=== PATIENT | male | born 1930 | race Caucasian/White ===

== ENCOUNTER 2018-08-31 14:58 | Inpatient (IN) ==
[2018-08-31] MEDS ORDERED: Sod Chloride 0.9% Inj 1,000 ML IV.SIG ONE (17:35)
--- NOTE | 2018-08-31 17:44 | ED ---
HPI General Chief complaint: Back Pain/Injury Stated complaint: Back Pain Time Seen by Provider: 08/31/18 17:13 Source: patient, family and RN notes reviewed Mode of arrival: ambulatory History of Present Illness HPI narrative: 88yM presenting with weakness. The patient states that for the past several months he's been having episodes of "lightheadedness where I just feel terrible and it feels like a curtain is coming down over my vision". The patient's family member states that he was recently admitted for UTI/ hyponatremia and was at a rehab facility in [place] until a week ago, when he was discharged and moved to [facility] to be closer to family. His family member also states that he's been having episodes of near-syncope and when he was at the rehab facility was found sitting in a chair "with his eyes rolled back, unresponsive for about 5 minutes" but was at neurologic baseline following this incident. The patient says that he has chronic lower back pain and feels like he is weak in all extremities. Denies fever or chills, diaphoresis, chest pain, palpitations, dyspnea, nausea or vomiting. 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 He also had a brief episode of atrial fibrillation 2-3 years ago but converted back to normal sinus and is no longer on anticoagulation. Related Data Home Medications Medication Instructions Recorded Confirmed levothyroxine [Synthroid] 25 mcg PO DAILY 08/31/18 08/31/18 lisinopril 20 mg PO BID 08/31/18 08/31/18 meclizine 25 mg PO BID 08/31/18 08/31/18 metoprolol tartrate 25 mg PO BID 08/31/18 08/31/18 omeprazole 20 mg PO DAILY 08/31/18 08/31/18 Allergies Allergy/AdvReac Type Severity Reaction Status Date / Time penicillin G Allergy Rash Verified 08/31/18 17:32 Review of Systems ROS: all other systems reviewed are negative [facility] Medical History Medical History Afib (Acute) Colon cancer (Acute) HTN (hypertension) (Acute) Surgical History Surgical History History of colon resection (Acute) Hx of endarterectomy (Acute) Social History Social History Substance History: No History of Abuse Second Hand Smoke Exposure: No Smoking Status: Never smoker How Often Do You Have a Drink Containing Alcohol: 4 or more times a week Recent Travel in [facility] within the Last 8 Weeks: No Recent Out of Country Travel within the Last 8 Weeks: No Immunization History Tetanus Immunization: Unsure Exam Const General: healthy appearing and no acute distress [facility] Head: normocephalic and atraumatic Face and sinus: normal facial exam Eyes General: appearance normal, both eyes and all related structures Pupils: PERRL Chest Chest: normal inspection of the chest Resp Effort & Inspection: normal respiratory effort Auscultation: no rhonchi and no wheezes Cardio Rate: regular rate Rhythm: regular rhythm GI Inspection: non-distended Palpation: soft and nontender Skin General: no rashes or lesions noted Neuro General: alert, awake, oriented x3 and no focal motor deficits Other: Pupils 3 mm and reactive bilaterally, no nystagmus Motor strength 5/5 in all extremities, no drift, sensation intact to all extremities Psych Affect: normal affect Course Initial Documented Vital Signs Temperature 98.6 F 08/31/18 15:14 Pulse Rate 90 08/31/18 15:14 Respiratory Rate 18 08/31/18 15:14 Blood Pressure 136/74 08/31/18 15:14 Pulse Oximetry 94 L 08/31/18 15:14 Last Documented Vital Signs Temperature 98.0 F 09/01/18 16:00 Pulse Rate 86 09/01/18 16:00 Respiratory Rate 18 09/01/18 16:00 Blood Pressure 169/84 H 09/01/18 16:00 Pulse Oximetry 99 09/01/18 16:00 NIH Stroke Scale NIHSS Time Completed NIHSS Time Completed: 17:42 NIH Stroke Scale Level of Consciousness: 0-Alert Orientation Questions: 0-Answers both correct Responds to Commands: 0-Both tasks correct Gaze Eye Movement: 0-Horizontal movement WNL Visual Lewis: 0-No visual field defect Facial Movement: 0-Normal Motor Functions Arm LEFT: 0-No drift Motor Functions Arm RIGHT: 0-No drift Motor Functions Leg LEFT: 0-No drift Motor Functions Leg RIGHT: 0-No drift Limb Ataxia: 0-No ataxia Sensory Loss: 0-No sensory loss Best Language: 0-Normal Articulation: 0-Normal Extinction or Inattention Sensory: 0-Absent Total: 0 Medical Decision Making MDM Narrative Medical decision making narrative: Assessment: 88yM presenting with lightheadedness and near-syncope Plan: EKG and monitor Labs CXR UA CTH, CTA head/ neck if BUN/ creat allow Patient was evaluated/reassessed by myself via the RMA process Patient has a sodium of 127 and potassium is 5.8 EKG shows no changes to suggest hyperkalemia CT of head neck CT angios of head all negative for any acute changes. Discussed with family members and patient about course of treatment. Due to increased weakness near syncopal episodes and constant dizziness patient will be admitted for observation and monitoring of patient's sodium and potassium After 1 L of fluids patient Received repeat potassium which showed potassium 4.7 Patient will be admitted to Dr. Ho Medical Screen Exam Complete: Yes Emergency Medical Condition: Yes Differential Diagnosis Differential Diagnosis: Differential diagnosis includes, but is not limited to: arrhythmia, ACS, electrolyte abnormality, CVA/ TIA, dehydration, ADDY, UTI Lab Data Result diagrams: 09/01/18 10:26 09/01/18 10:26 Lab Results 08/31/18 08/31/18 08/31/18 Range/Units 17:49 17:49 17:49 WBC 7.3 (4.0-11.0) th/mm3 RBC 3.95 L (4.50-5.90) mil/mm3 Hgb 14.2 (13.0-17.0) gm/dL Hct 40.3 (39.0-51.0) % MCV 102.1 H (80.0-100.0) fL MCH 35.8 H (27.0-34.0) pg MCHC 35.1 (32.0-36.0) % RDW 13.3 (11.6-17.2) % Plt Count 351 (150-450) th/mm3 MPV 7.7 (7.0-11.0) fL Prelim Diff (Auto) Slide review pending Neut % (Auto) 67.4 (16.0-70.0) % Lymph % (Auto) 21.1 (9.0-44.0) % [place] % (Auto) 9.7 H (0.0-8.0) % Eos % (Auto) 1.0 (0.0-4.0) % Baso % (Auto) 0.8 (0.0-2.0) % Neut # (Auto) 4.9 (1.8-7.7) th/mm3 Lymph # (Auto) 1.5 (1.0-4.8) th/mm3 [place] # (Auto) 0.7 (0.0-0.9) th/mm3 Eos # (Auto) 0.1 (0.0-0.4) th/mm3 Baso # (Auto) 0.1 (0.0-0.2) th/mm3 WBC Differential . Diff Scan Auto diff confirmed Differential Comment . Platelet Estimate Normal (Normal) Platelet Morphology Clumped H (Normal) PT 10.5 (9.8-11.6) sec INR 1.0 Ratio Sodium 128 L (136-145) meq/L Potassium 5.6 H (3.5-5.1) meq/L Chloride 97 L (98-107) meq/L Carbon Dioxide 26.2 (21.0-32.0) meq/L Anion Gap 5 (5-15) meq/L BUN 14 (7-18) mg/dL Creatinine 1.11 (0.60-1.30) mg/dL Estimated GFR 62 L (>89) mL/min Random Glucose 98 (74-106) mg/dL Calcium 9.1 (8.5-10.1) mg/dL Phosphorus 3.7 (2.5-4.9) mg/dL Magnesium 2.2 (1.5-2.5) mg/dL Total Bilirubin 0.6 (0.2-1.0) mg/dL AST 37 (15-37) U/L ALT 19 (12-78) U/L Alkaline Phosphatase 66 (45-117) U/L Troponin I Less than 0.02 L (0.02-0.05) ng/mL Total Protein 7.9 (6.4-8.2) g/dL Albumin 3.6 (3.4-5.0) g/dL TSH 0.467 (0.358-3.740) uIU/mL Urine Color (Yellw/Straw) Urine Clarity (Clear) Urine pH (5.0-8.5) Ur Specific [place] (1.002-1.035) Urine Protein (Neg-Trace) mg/dL Urine Glucose (UA) (Negative) mg/dL Urine Ketones (Negative) mg/dL Urine Occult Blood (Negative) Urine Nitrate (Negative) Urine Bilirubin (Negative) Urine Urobilinogen (Less than 2) mg/dL Ur Leukocyte Esterase (Negative) Urine RBC (0-3) /hpf Ur Squamous Epith Cells (0-5) /hpf Urine Bacteria (None) /hpf Hyaline Casts (0-3) /lpf Micro UA Comment Ur Microscopic Review Urine Culture Comments 08/31/18 09/01/18 09/01/18 Range/Units 21:10 00:30 00:40 WBC (4.0-11.0) th/mm3 RBC (4.50-5.90) mil/mm3 Hgb (13.0-17.0) gm/dL Hct (39.0-51.0) % MCV (80.0-100.0) fL MCH (27.0-34.0) pg MCHC (32.0-36.0) % RDW (11.6-17.2) % Plt Count (150-450) th/mm3 MPV (7.0-11.0) fL Prelim Diff (Auto) Neut % (Auto) (16.0-70.0) % Lymph % (Auto) (9.0-44.0) % [place] % (Auto) (0.0-8.0) % Eos % (Auto) (0.0-4.0) % Baso % (Auto) (0.0-2.0) % Neut # (Auto) (1.8-7.7) th/mm3 Lymph # (Auto) (1.0-4.8) th/mm3 [place] # (Auto) (0.0-0.9) th/mm3 Eos # (Auto) (0.0-0.4) th/mm3 Baso # (Auto) (0.0-0.2) th/mm3 WBC Differential Diff Scan Differential Comment Platelet Estimate (Normal) Platelet Morphology (Normal) PT (9.8-11.6) sec INR Ratio Sodium (136-145) meq/L Potassium 4.5 D (3.5-5.1) meq/L Chloride (98-107) meq/L Carbon Dioxide (21.0-32.0) meq/L Anion Gap (5-15) meq/L BUN (7-18) mg/dL Creatinine (0.60-1.30) mg/dL Estimated GFR (>89) mL/min Random Glucose (74-106) mg/dL Calcium (8.5-10.1) mg/dL Phosphorus (2.5-4.9) mg/dL Magnesium (1.5-2.5) mg/dL Total Bilirubin (0.2-1.0) mg/dL AST (15-37) U/L ALT (12-78) U/L Alkaline Phosphatase (45-117) U/L Troponin I Less than 0.02 L (0.02-0.05) ng/mL Total Protein (6.4-8.2) g/dL Albumin (3.4-5.0) g/dL TSH (0.358-3.740) uIU/mL Urine Color Straw (Yellw/Straw) Urine Clarity Clear (Clear) Urine pH 6.0 (5.0-8.5) Ur Specific [place] 1.016 (1.002-1.035) Urine Protein Negative (Neg-Trace) mg/dL Urine Glucose (UA) Negative (Negative) mg/dL Urine Ketones Negative (Negative) mg/dL Urine Occult Blood Negative (Negative) Urine Nitrate Negative (Negative) Urine Bilirubin Negative (Negative) Urine Urobilinogen Less than 2 (Less than 2) mg/dL Ur Leukocyte Esterase Negative (Negative) Urine RBC Less than 1 (0-3) /hpf Ur Squamous Epith Cells <1 (0-5) /hpf Urine Bacteria Rare H (None) /hpf Hyaline Casts 1 (0-3) /lpf Micro UA Comment Culture not ind Ur Microscopic Review Not Reportable Urine Culture Comments Culture not ind 09/01/18 09/01/18 Range/Units 10:26 10:26 WBC 5.0 (4.0-11.0) th/mm3 RBC 3.86 L (4.50-5.90) mil/mm3 Hgb 13.6 (13.0-17.0) gm/dL Hct 39.7 (39.0-51.0) % MCV 103.0 H (80.0-100.0) fL MCH 35.1 H (27.0-34.0) pg MCHC 34.1 (32.0-36.0) % RDW 13.6 (11.6-17.2) % Plt Count 280 (150-450) th/mm3 MPV 7.3 (7.0-11.0) fL Prelim Diff (Auto) Neut % (Auto) 74.8 H (16.0-70.0) % Lymph % (Auto) 16.1 (9.0-44.0) % [place] % (Auto) 7.2 (0.0-8.0) % Eos % (Auto) 1.4 (0.0-4.0) % Baso % (Auto) 0.5 (0.0-2.0) % Neut # (Auto) 3.7 (1.8-7.7) th/mm3 Lymph # (Auto) 0.8 L (1.0-4.8) th/mm3 [place] # (Auto) 0.4 (0.0-0.9) th/mm3 Eos # (Auto) 0.1 (0.0-0.4) th/mm3 Baso # (Auto) 0.0 (0.0-0.2) th/mm3 WBC Differential . Diff Scan Differential Comment Auto diff final Platelet Estimate (Normal) Platelet Morphology (Normal) PT (9.8-11.6) sec INR Ratio Sodium 136 (136-145) meq/L Potassium 4.3 (3.5-5.1) meq/L Chloride 103 (98-107) meq/L Carbon Dioxide 26.4 (21.0-32.0) meq/L Anion Gap 7 (5-15) meq/L BUN 10 (7-18) mg/dL Creatinine 0.96 (0.60-1.30) mg/dL Estimated GFR 74 L (>89) mL/min Random Glucose 176 H (74-106) mg/dL Calcium 8.9 (8.5-10.1) mg/dL Phosphorus (2.5-4.9) mg/dL Magnesium (1.5-2.5) mg/dL Total Bilirubin 0.6 (0.2-1.0) mg/dL AST 15 (15-37) U/L ALT 16 (12-78) U/L Alkaline Phosphatase 64 (45-117) U/L Troponin I Less than 0.02 L (0.02-0.05) ng/mL Total Protein 7.0 D (6.4-8.2) g/dL Albumin 3.3 L (3.4-5.0) g/dL TSH (0.358-3.740) uIU/mL Urine Color (Yellw/Straw) Urine Clarity (Clear) Urine pH (5.0-8.5) Ur Specific [place] (1.002-1.035) Urine Protein (Neg-Trace) mg/dL Urine Glucose (UA) (Negative) mg/dL Urine Ketones (Negative) mg/dL Urine Occult Blood (Negative) Urine Nitrate (Negative) Urine Bilirubin (Negative) Urine Urobilinogen (Less than 2) mg/dL Ur Leukocyte Esterase (Negative) Urine RBC (0-3) /hpf Ur Squamous Epith Cells (0-5) /hpf Urine Bacteria (None) /hpf Hyaline Casts (0-3) /lpf Micro UA Comment Ur Microscopic Review Urine Culture Comments Imaging Data Radiologist's impression: Chest X-Ray 08/31/18 17:35 CONCLUSION: Bilateral calcified pleural plaques seen at the diaphragmatic surfaces bilaterally. There are also areas of density projecting over the mid chest regions bilaterally presumably from pleural calcifications. Prior exams are unavailable for comparison. One could further evaluate the chest to ensure the areas of density over the mid chest are related to pleural calcifications with a CT examination. Head CT 08/31/18 17:35 CONCLUSION: Chronic small vessel ischemic and atrophic changes. Neck CTA 08/31/18 17:35 CONCLUSION: 1. Scattered areas of plaque at the carotid bulb regions bilaterally without evidence of significant stenosis. 2. Mild soft plaque at the proximal left common carotid artery without a significant stenosis. Chest CT 09/01/18 00:00 CONCLUSION: 1. Small right and tiny left pleural effusion. 2. Extensive bilateral calcified pleural plaques which can be seen with asbestosis exposure. ECG Data Attestation: I personally reviewed and interpreted this ECG as follows: Interpretation: Rate: 85 BPM Rhythm: Sinus [place]: Normal Intervals: 1st degree AV block, QTc 386 ms Q waves: III, V2 T waves: Upright, no inversions ST segments: No elevations or depressions Impression: Non-specific EKG, 1st degree AV block, no previous EKG available for comparison. Discharge Plan Discharge Disposition Patient Disposition: ED Admit(ED Internal Use Only) Discharge Condition Condition: Stable Discharge Order Discharge Orders: ED Use Only Admit Order (Routine); Ordered 08/31/18 Ordered By: Britta Welsh Discharge Details Diagnosis: Weakness, Falls frequently, Syncopal episodes, Acute hyponatremia, Acute hyperkalemia Physicians Team ED Provider: Stella Sow ED Midlevel Provider: Britta Welsh Primary Care Provider: Primary Care Nay Lainez Attending Provider: Alberto Doty Status ED Status: Left Department Discharge Information Discharge Date/Time: 09/01/18 01:00
[2018-08-31 18:00] LABS: Baso # (Auto) 0.1 th/mm3 (0.0-0.2); Baso % (Auto) 0.8 % (0.0-2.0); Eos # (Auto) 0.1 th/mm3 (0.0-0.4); Hematocrit 40.3 % (39.0-51.0); Hemoglobin 14.2 gm/dL (13.0-17.0); Lymph # (Auto) 1.5 th/mm3 (1.0-4.8); Lymph % (Auto) 21.1 % (9.0-44.0); Mean Corpuscular HGB Conc 35.1 % (32.0-36.0); Mean Corpuscular Hemoglobin 35.8 pg (27.0-34.0); Mean Corpuscular Volume 102.1 fL (80.0-100.0); Mean Platelet Volume 7.7 fL (7.0-11.0); Mono # (Auto) 0.7 th/mm3 (0.0-0.9); Mono % (Auto) 9.7 % (0.0-8.0); Neut # (Auto) 4.9 th/mm3 (1.8-7.7); Neut % (Auto) 67.4 % (16.0-70.0); Platelet Count 351 th/mm3 (150-450); Red Blood Count 3.95 mil/mm3 (4.50-5.90); Red Cell Distribution Width 13.3 % (11.6-17.2); White Blood Count 7.3 th/mm3 (4.0-11.0)
[2018-08-31 18:18] LABS: Alanine Aminotransferase 19 U/L (12-78); Phosphorus 3.7 mg/dL (2.5-4.9)
[2018-08-31 18:27] LABS: Alkaline Phosphatase 66 U/L (45-117); Thyroid Stimulating Hormone 0.467 uIU/mL (0.358-3.740); Total Protein 7.9 g/dL (6.4-8.2)
[2018-08-31 18:36] LABS: Albumin 3.6 g/dL (3.4-5.0); Anion Gap 5 meq/L (5-15); Aspartate Aminotransferase 37 U/L (15-37); Blood Urea Nitrogen 14 mg/dL (7-18); Calcium 9.1 mg/dL (8.5-10.1); Carbon Dioxide 26.2 meq/L (21.0-32.0); Chloride 97 meq/L (98-107); Glomerular Filtration Rate 62 mL/min (>89); Glucose,Random 98 mg/dL (74-106); Magnesium 2.2 mg/dL (1.5-2.5); Potassium 5.6 meq/L (3.5-5.1); Sodium 128 meq/L (136-145)
[2018-08-31 18:37] LABS: Prothrombin Time 10.5 sec (9.8-11.6)
[2018-08-31 18:49] LABS: Platelet Estimate Normal (Normal); Platelet Morphology Clumped (Normal)
--- NOTE | 2018-08-31 19:01 | XR ---
EXAM DATE: 08/31/2018 6:07 PM EST AGE/SEX: 88 years / Male INDICATIONS: Weakness, dizziness. CLINICAL DATA: This is the patient's initial encounter. Patient reports that signs and symptoms have been present for 1 day and indicates a pain score of 0/10. MEDICAL/SURGICAL HISTORY: Hypertension. Endarterectomy None. COMPARISON: No prior exams available for comparison. FINDINGS: The heart size is normal. There is calcification seen over the domes of the diaphragm bilaterally. Th ere also appear to be plaque-like areas of calcification projecting over the mid chest regions bilate rally presumably from pleural calcifications. The heart size is normal. The lungs appear grossly gerald r despite the pleural calcifications. Spurs are seen in the thoracic spine. CONCLUSION: Bilateral calcified pleural plaques seen at the diaphragmatic surfaces bilaterally. There are also ar eas of density projecting over the mid chest regions bilaterally presumably from pleural calcificatio ns. Prior exams are unavailable for comparison. One could further evaluate the chest to ensure the ar eas of density over the mid chest are related to pleural calcifications with a CT examination. Electronically signed by: Ivan Escobar MD Board Certified Radiologist 08/31/2018 7:00 PM EST
--- NOTE | 2018-08-31 19:29 | CT ---
EXAM DATE: 08/31/2018 7:25 PM EST AGE/SEX: 88 years / Male INDICATIONS: Generalized weakness, near syncope. CLINICAL DATA: This is the patient's initial encounter. Patient reports that signs and symptoms have been present for 1 month and indicates a pain score of 0/10. MEDICAL/SURGICAL HISTORY: Carcinoma, colon. Hypertension. AFIB Colon resection. RADIATION DOSE: 56.35 CTDI (mGy) COMPARISON: No prior exams available for comparison. TECHNIQUE: CT of the head without contrast. Using automated exposure control and adjustment of the mA and/or kV according to patient size, radiation dose was kept as low as reasonably achievable to ob tain optimal diagnostic quality images. DICOM format image data is available electronically for revi ew and comparison. FINDINGS: There is no evidence for intracranial hemorrhage, mass effect, mass lesions, or edema. The visualize d bony structures appear intact. Significant degree of brain atrophy is seen. Moderate to severe per iventricular white matter changes are seen nonspecific mostly consistent with chronic small vessel is chemic changes. There are no signs of acute infarction for technique. 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 CONCLUSION: Chronic small vessel ischemic and atrophic changes. Electronically signed by: Isa Pina MD Board Certified Radiologist 08/31/2018 7:28 PM EST
--- NOTE | 2018-08-31 19:42 | CT ---
EXAM DATE: 08/31/2018 7:35 PM EST AGE/SEX: 88 years / Male INDICATIONS: Generalized weakness, near syncope. CLINICAL DATA: This is the patient's initial encounter. Patient reports that signs and symptoms have been present for 1 month and indicates a pain score of 0/10. MEDICAL/SURGICAL HISTORY: Carcinoma, colon. Hypertension. AFIB Colon resection. RADIATION DOSE: 9.71 CTDI (mGy) COMPARISON: [facility] – [place] HEAD W/O CONTRAST, 08/31/2018. . TECHNIQUE: Volumetric scanning was performed using a multi-row detector CT scanner during bolus infu josseline of 100 ml Omnipaque 350 (iohexol) nonionic water-soluble contrast as a cumulative dose for mult iple exams. The data was post processed with a variety of visualization algorithms including full v olume maximum intensity projection, multi-planar sliding thin slab reformation, curved planar reforma tion, and surface rendering techniques. Using automated exposure control and adjustment of the mA an d/or kV according to patient size, radiation dose was kept as low as reasonably achievable to obtain optimal diagnostic quality images. DICOM format image data is available electronically for review an d comparison. FINDINGS: There are areas of slight irregularity involving multiple branches bilaterally most likely due to chr onic atherosclerotic changes mainly involving the PLATE HANGER and MCA branches bilaterally, however other petra ologies such as vasculitis is not excluded. There is no evidence for aneurysm or vascular malformatio n. No definite vessel truncation or filling defect is seen. Conclusion:Chronic atherosclerotic disease without evidence of truncation or definite filling defects . Electronically signed by: Isa Pina MD Board Certified Radiologist 08/31/2018 7:41 PM EST
--- NOTE | 2018-08-31 19:55 | CT ---
EXAM DATE: 08/31/2018 7:43 PM EST AGE/SEX: 88 years / Male INDICATIONS: Generalized weakness, near syncope. CLINICAL DATA: This is the patient's initial encounter. Patient reports that signs and symptoms have been present for 1 month and indicates a pain score of 0/10. MEDICAL/SURGICAL HISTORY: Carcinoma, colon. Hypertension. Colon resection. RADIATION DOSE: 9.71 CTDI (mGy) COMPARISON: No prior exams available for comparison. TECHNIQUE: Volumetric scanning was performed using a multirow detector CT scanner during bolus infus ion of 100 ml Omnipaque 350 (iohexol) nonionic water-soluble contrast as a cumulative dose for multi ple exams. The data was postprocessed with a variety of visualization algorithms including full-vol ume maximum intensity projection, multiplanar sliding thin-slab reformation, curved-planar reformatio n, and surface-rendering techniques. Using automated exposure control and adjustment of the mA and/o r kV according to patient size, radiation dose was kept as low as reasonably achievable to obtain opt imal diagnostic quality images. DICOM format image data is available electronically for review and c omparison. FINDINGS: Aortic Arch: The left common carotid artery arises from the base of the right brachiocephalic artery . This a normal variant. No ostial narrowing is seen at the great vessels. There is scattered atheros clerotic calcification seen in these regions and the aortic arch. There is mild soft plaque at the pr oximal left common carotid artery without significant stenosis. Right Carotid: The common carotid artery is intact. Mild plaquing calcifications seen in the carotid bulb region without significant stenosis. Clips are seen around the right carotid bulb region. The external carotid artery is intact. Left Carotid: The common carotid artery is intact. There is calcified plaque seen at the carotid bul b region but an area of significant stenosis is not appreciated. The external carotid artery is intac t. Vertebrals: The vertebral arteries have a symmetric diameter. No stenotic lesions are seen. Percent stenosis is calculated using the diameter of the stenotic region over the diameter of the nor mal distal internal carotid artery. CONCLUSION: 1. Scattered areas of plaque at the carotid bulb regions bilaterally without evidence of significant stenosis. 2. Mild soft plaque at the proximal left common carotid artery without a significant stenosis. Electronically signed by: Ivan Escobar MD Board Certified Radiologist 08/31/2018 7:53 PM EST
[2018-08-31] MEDS ORDERED: Acetaminophen 325 MG Tablet PO PRN (22:54)
[2018-08-31] MEDS ORDERED: Bisacodyl 10 MG Supp RECTAL PRN (22:54)
--- NOTE | 2018-08-31 22:58 | P.HPIM ---
History of Present Illness Primary Care Physician: No Primary Care Physician History of Present Illness: This is an 88-year-old male with a PMH of HTN, Colon CA s/p Resection, h/o Right CEA and h/o A-fib who was brought to the ER after episode of syncope vs seizure. Pt very poor historian, but reports significant lightheadedness for several weeks, states he was told he had a syncopal event, but has no recollection. Per Daughter, pt was seen at Rehab Facility slumped in chair w/ "eyes rolled back", +LOC for approx 5 min. No recurrent episodes while in ER. Diagnosis (1) Syncope: (2) Hyponatremia: (3) Weakness: Review of Systems PAST FAMILY HISTORY: Reviewed. No h/o DM or CAD Review of Systems: all other systems reviewed are negative [facility] Medical History Medical History Afib (Acute) Colon cancer (Acute) HTN (hypertension) (Acute) Surgical History Surgical History History of colon resection (Acute) Hx of endarterectomy (Acute) Social History Social History Second Hand Smoke Exposure: No Smoking Status: Never smoker How Often Do You Have a Drink Containing Alcohol: 2 to 4 times a month Recent Travel in [facility] within the Last 8 Weeks: No Recent Out of Country Travel within the Last 8 Weeks: No Immunization History Tetanus Immunization: Unsure Medications and Allergies Allergies Allergy/AdvReac Type Severity Reaction Status Date / Time penicillin G Allergy Rash Verified 08/31/18 17:32 Home Medications Medication Instructions Recorded Confirmed Type levothyroxine [Synthroid] 25 mcg PO DAILY 08/31/18 08/31/18 History lisinopril 20 mg PO BID 08/31/18 08/31/18 History meclizine 25 mg PO BID 08/31/18 08/31/18 History metoprolol tartrate 25 mg PO BID 08/31/18 08/31/18 History omeprazole 20 mg PO DAILY 08/31/18 08/31/18 History Active Medications: Active Medications Sodium Chloride (Ns Flush) 2 ml IV.FLUSH PRN PRN PRN Reason: FLUSH AFTER USING IV ACCESS Physical Exam Vital signs: Vital Signs 08/31/18 15:14 08/31/18 18:41 Temperature 98.6 F Pulse Rate 90 84 Respiratory Rate 18 20 Blood Pressure 136/74 168/85 H Pulse Oximetry 94 L 98 Intake & Output 08/31/18 08/31/18 09/01/18 06:59 18:59 06:59 Intake Total 1000 / 1000 Balance 1000 / 1000 Weight 74.843 kg Intake: IV 1000 / 1000 NS Inj 1,000 ML @ Wide Open IV. 1000 / 1000 SIG BOLUS ONE Rx#:[id number] Narrative: PE: GENERAL: Very pleasant elderly white male in no acute distress. SKIN: Focused skin assessment warm and dry. HEENT: PERRLA, EOMI. No scleral icterus or conjunctival pallor. No lid lag or facial droop. CARDIOVASCULAR: Regular rate and rhythm. No obvious murmurs to auscultation. No chest tenderness to palpation. RESPIRATORY: No obvious rhonchi or wheezing. Clear to auscultation. Breath sounds equal bilaterally. GASTROINTESTINAL: Abdomen soft, non-tender, nondistended. BS normal. MUSCULOSKELETAL: Extremities without clubbing, cyanosis, or edema. No obvious deformities. NEUROLOGICAL: Awake, alert and oriented x4. No focal neurologic deficits. Moving both upper and lower extremities spontaneously. PSYCHIATRIC: Appropriate mood and affect. Insight and judgment normal. Results Labs CBC & Chem 7: 08/31/18 17:49 08/31/18 21:10 Imaging Impressions Chest X-Ray 08/31/18 17:35 CONCLUSION: Bilateral calcified pleural plaques seen at the diaphragmatic surfaces bilaterally. There are also areas of density projecting over the mid chest regions bilaterally presumably from pleural calcifications. Prior exams are unavailable for comparison. One could further evaluate the chest to ensure the areas of density over the mid chest are related to pleural calcifications with a CT examination. Head CT 08/31/18 17:35 CONCLUSION: Chronic small vessel ischemic and atrophic changes. Neck CTA 08/31/18 17:35 CONCLUSION: 1. Scattered areas of plaque at the carotid bulb regions bilaterally without evidence of significant stenosis. 2. Mild soft plaque at the proximal left common carotid artery without a significant stenosis. Caprini VTE Risk Assessment Caprini VTE Risk Assessment: No/Low Risk (score <= 1) Caprini Risk Assessment Model: Point Value = 1 Point Value = 2 Point Value = 3 Point Value = 5 Age 41-60 Minor surgery BMI > 25 kg/m2 Swollen legs Varicose veins or History of unexplained or recurrent spontaneous Oral contraceptives or hormone replacement Sepsis (< 1 month) Serious lung disease, including pneumonia (< 1 month) Abnormal pulmonary function Acute myocardial infarction Congestive heart failure (< 1 month) History of inflammatory bowel disease Medical patient at bed rest Age 61-74 Arthroscopic surgery Major open surgery (> 45 min) Laparoscopic surgery (> 45 min) Malignancy Confined to bed (> 72 hours) Immobilizing plaster cast Central venous access Age >= 75 History of VTE Family history of VTE Factor V Leiden Prothrombin [id number] Lupus anticoagulant Anticardiolipin antibodies Elevated serum homocysteine Heparin-induced thrombocytopenia Other congenital or acquired thrombophilia Stroke (< 1 month) Elective arthroplasty Hip, pelvis, or leg fracture Acute spinal cord injury (< 1 month) Prophylaxis Regimen: Total Risk Factor Score Risk Level Prophylaxis Regimen 0-1 Low Early ambulation 2 Moderate Order ONE of the following: *Sequential Compression Device (SCD) *Heparin 5000 units SQ BID 3-4 Higher Order ONE of the following medications: *Heparin 5000 units SQ TID *Enoxaparin/Lovenox 40 mg SQ daily (WT < 150 kg, CrCl > 30 mL/min) *Enoxaparin/Lovenox 30 mg SQ daily (WT < 150 kg, CrCl > 10-29 mL/min) *Enoxaparin/Lovenox 30 mg SQ BID (WT < 150 kg, CrCl > 30 mL/min) AND/OR *Sequential Compression Device (SCD) 5 or more Highest Order ONE of the following medications: *Heparin 5000 units SQ TID (Preferred with Epidurals) *Enoxaparin/Lovenox 40 mg SQ daily (WT < 150 kg, CrCl > 30 mL/min) *Enoxaparin/Lovenox 30 mg SQ daily (WT < 150 kg, CrCl > 10-29 mL/min) *Enoxaparin/Lovenox 30 mg SQ BID (WT < 150 kg, CrCl > 30 mL/min) AND *Sequential Compression Device (SCD) Assessment and Plan (1) Syncope: Code(s): R55 - Syncope and collapse Status: Acute (2) Hyponatremia: Code(s): E87.1 - Hypo-osmolality and hyponatremia Status: Acute (3) Weakness: Code(s): R53.1 - Weakness Status: Acute Plan A/P: 1. Syncope: vs Seizure, reports ongoing lightheadedness for few weeks w/ previous syncopal events, today w/ syncope vs seizure, pt w/ no recollection of events. CT Head w/ chronic small vessel ischemic changes. CTA Head chronic atherosclerotic disease a Head scattered areas of plaque carotid bulbs bilaterally without significant stenosis, mild soft plaque left common carotid artery without significant stenosis. Telemetry, check Echo to eval for valvular abnormality/cardiomyopathy, check serial cardiac enzymes for possible ischemia, check EEG, Seizure Precautions. 2. Hyponatremia: Na 128, Daughter notes chronic, IVF for hydration, monitor I/ O, check U/a to eval for underlying UTI 3. Weakness: likely secondary to above, PT for eval/tx, Case Management. 4. DVT Prophylaxis: SCD/Teds 5. Social work for d/c planning as needed 6. Case discussed w/ ER physician at length, labs/records/imaging reviewed by me.
[2018-09-01 01:09] LABS: Bacteria,Urine Rare /hpf; Bilirubin,Urine Negative (Negative); Clarity,Urine Clear (Clear); Color,Urine Straw (Yellw/Straw); Glucose,Urine (UA) Negative (Negative); Hyaline Casts,Urine 1 /lpf (0-3); Leukocyte Esterase,Urine Negative (Negative); Nitrite,Urine Negative (Negative); Specific Gravity,Urine 1.016 (1.002-1.035); Squamous Epithelial Cell,Urine <1 /hpf (0-5)
[2018-09-01] MEDS: Sod Chloride 0.9% Inj 1,000 ML IV.CONT SCH ×3 (02:00→21:23)
[2018-09-01] MEDS ORDERED: Morphine Inj 4 MG/ML Vial IV.PUSH PRN (10:15)
[2018-09-01] MEDS ORDERED: Naloxone Inj 0.4 MG/ML Vial IV.PUSH PRN (10:15)
[2018-09-01] MEDS: Pantoprazole Sodium 20 MG DR Tablet PO SCH (10:55)
[2018-09-01] MEDS: Senna/Docusate Sodium 8.6/50 MG Tablet PO SCH ×2 (11:05→21:23)
[2018-09-01 11:09] LABS: Baso % (Auto) 0.5 % (0.0-2.0); Eos # (Auto) 0.1 th/mm3 (0.0-0.4); Eos % (Auto) 1.4 % (0.0-4.0); Hematocrit 39.7 % (39.0-51.0); Hemoglobin 13.6 gm/dL (13.0-17.0); Lymph # (Auto) 0.8 th/mm3 (1.0-4.8); Lymph % (Auto) 16.1 % (9.0-44.0); Mean Corpuscular HGB Conc 34.1 % (32.0-36.0); Mean Corpuscular Hemoglobin 35.1 pg (27.0-34.0); Mean Platelet Volume 7.3 fL (7.0-11.0); Mono # (Auto) 0.4 th/mm3 (0.0-0.9); Mono % (Auto) 7.2 % (0.0-8.0); Neut # (Auto) 3.7 th/mm3 (1.8-7.7); Neut % (Auto) 74.8 % (16.0-70.0); Platelet Count 280 th/mm3 (150-450); Red Blood Count 3.86 mil/mm3 (4.50-5.90); Red Cell Distribution Width 13.6 % (11.6-17.2)
[2018-09-01 11:43] LABS: Albumin 3.3 g/dL (3.4-5.0); Anion Gap 7 meq/L (5-15); Aspartate Aminotransferase 15 U/L (15-37); Blood Urea Nitrogen 10 mg/dL (7-18); Calcium 8.9 mg/dL (8.5-10.1); Carbon Dioxide 26.4 meq/L (21.0-32.0); Chloride 103 meq/L (98-107); Glomerular Filtration Rate 74 mL/min (>89); Glucose,Random 176 mg/dL (74-106); Potassium 4.3 meq/L (3.5-5.1); Sodium 136 meq/L (136-145)
[2018-09-01 11:49] LABS: Alanine Aminotransferase 16 U/L (12-78); Alkaline Phosphatase 64 U/L (45-117)
--- NOTE | 2018-09-01 14:12 | ECG ---
Date Performed: 08/31/2018 Time Performed: 20:12:06 PTAGE: 88 years EKG: Baseline artifact present Sinus rhythm WITH FIRST DEGREE AV BLOCK ABNORMAL ECG No significant change from prior electrocardiogram. PREVIOUS TRACING : 08/31/2018 17.55 DOCTOR: Kike Franklin Interpretating Date/Time 09/01/2018 14:10:23
--- NOTE | 2018-09-01 14:15 | ECG ---
Date Performed: 08/31/2018 Time Performed: 17:55:01 PTAGE: 88 years EKG: Baseline artifact present PROBABLE Sinus rhythm WITH FIRST DEGREE AV BLOCK ABNORMAL ECG NO PREVIOUS TRACING DOCTOR: Kike Franklin Interpretating Date/Time 09/01/2018 14:14:23
--- NOTE | 2018-09-01 14:28 | P.PNIM ---
Subjective Interval history: No overnight events, still with dizziness and lightheadedness. Patient cannot remember passing out but was told that he passed out. No nausea or vomiting. Denies any palpitations, chest pain or headache. No focal weakness. Physical Exam Vital signs: Vital Signs 08/31/18 15:14 08/31/18 18:41 09/01/18 00:25 Temperature 98.6 F Pulse Rate 90 84 83 Respiratory Rate 18 20 18 Blood Pressure 136/74 168/85 H 155/79 H Pulse Oximetry 94 L 98 98 09/01/18 01:00 09/01/18 04:00 09/01/18 08:00 Temperature 98.0 F 97.8 F Pulse Rate 94 H 71 88 Respiratory Rate 20 20 Blood Pressure 157/98 H 149/78 H Pulse Oximetry 96 96 09/01/18 12:00 Temperature 97.8 F Pulse Rate 88 Respiratory Rate 20 Blood Pressure 141/75 H Pulse Oximetry 98 Intake & Output 08/31/18 09/01/18 09/01/18 18:59 06:59 18:59 Intake Total 1000 / 1000 1000 / 1000 Output Total 400 / 400 Balance 600 / 600 1000 / 1000 Weight 74.843 kg 2.58 kg Intake: IV 1000 / 1000 1000 / 1000 NS Inj 1,000 ML @ 100 mls/hr IV 1000 / 1000 .CONT .Q10H SULEMA Rx#:[id number] NS Inj 1,000 ML @ Wide Open IV. 1000 / 1000 SIG BOLUS ONE Rx#:[id number] Output: Urine 400 / 400 Other: Date of Last Bowel Movement 08/30/18 08/30/18 Weight On Admission 77 kg Narrative: Not in distress, well-nourished, looks stated age PERRL, pink conjunctiva without injection, anicteric Normal rate and regular rhythm, no murmurs gallops or rubs appreciated. Clear to auscultation and symmetric bilaterally, normal respiratory effort. Normal bowel sounds, soft, non-tender, nondistended, no guarding. Extremities without clubbing, cyanosis, or edema. No rash of generalized distribution. AAO x3, no cranial nerve deficits, moves all 4 extremities, no focal neurologic deficits Results Labs CBC & Chem 7: 09/01/18 10:26 09/01/18 10:26 Imaging Imaging: Impressions Chest X-Ray 02/15/19 17:35 CONCLUSION: Bilateral calcified pleural plaques seen at the diaphragmatic surfaces bilaterally. There are also areas of density projecting over the mid chest regions bilaterally presumably from pleural calcifications. Prior exams are unavailable for comparison. One could further evaluate the chest to ensure the areas of density over the mid chest are related to pleural calcifications with a CT examination. Head CT 08/31/18 17:35 CONCLUSION: Chronic small vessel ischemic and atrophic changes. Neck CTA 08/31/18 17:35 CONCLUSION: 1. Scattered areas of plaque at the carotid bulb regions bilaterally without evidence of significant stenosis. 2. Mild soft plaque at the proximal left common carotid artery without a significant stenosis. Assessment and Plan (1) Syncope: Code(s): R55 - Syncope and collapse Status: Acute (2) Hyponatremia: Code(s): E87.1 - Hypo-osmolality and hyponatremia Status: Acute (3) Weakness: Code(s): R53.1 - Weakness Status: Acute Plan This is an 88-year-old male with history of hypertension, colon cancer, atrial fibrillation presented to the hospital for possible seizure versus syncope. Seizure versus syncope - reports ongoing lightheadedness for few weeks w/ previous syncopal events, pt w/ no recollection of events. CT Head w/ chronic small vessel ischemic changes. CTA Head chronic atherosclerotic disease a Head scattered areas of plaque carotid bulbs bilaterally without significant stenosis , mild soft plaque left common carotid artery without significant stenosis. Keep on telemetry. Follow-up echocardiogram, troponin negative x3. Check EEG. Seizure precautions, check orthostatics. Urinalysis negative Bilateral calcified diaphragmatic pleural plaques-chest x-ray showed bilateral calcified diaphragmatic pleural plaques. There are also areas of density projecting over the mid chest regions bilaterally presumably from pleural calcifications. V Hyponatremia-sodium 128, continue normal saline, recheck BMP tomorrow. Generalized weakness-could be from dehydration, continue IVF. Continue physical therapy DVT prophylaxis: SCDs Patient will need rehab per physical therapy evaluation. Progress Note: Quality VTE Deep Vein Thrombosis/Pulmonary Embolism Present on Admission: No
--- NOTE | 2018-09-01 16:08 | CT ---
EXAM DATE: 09/01/2018 3:54 PM EST AGE/SEX: 88 years / Male INDICATIONS: Abnormal chest x-ray. CLINICAL DATA: This is the patient's initial encounter. Patient reports that signs and symptoms have been present for 1 day and indicates a pain score of 0/10. MEDICAL/SURGICAL HISTORY: Carcinoma, colon. Hypertension. Colon resection. RADIATION DOSE: 10.26 CTDI (mGy) COMPARISON: [facility] [place] [facility] [place] 1[place] SINGLE AP, 08/31/2018. . TECHNIQUE: Multiple contiguous axial images were obtained through the chest without contrast. Image s were obtained in suspended respiration using multiple row detector helical technique. Using automa simone exposure control and adjustment of the mA and/or kV according to patient size, radiation dose was kept as low as reasonably achievable to obtain optimal diagnostic quality images. DICOM format imag e data is available electronically for review and comparison. FINDINGS: Lungs: The lungs are symmetrically aerated. No infiltrates or nodular densities are seen. Mediastinum: There is good visualization of the great vessels of the middle mediastinum. No evidenc e of mediastinal or hilar adenopathy/mass. Pleurae: Small right and tiny left pleural effusion. Bilateral calcified pleural plaques Axillae: Unremarkable. Bony Structures: Unremarkable. Miscellaneous: The examination was extended to include the upper abdomen, and both adrenal glands ar e normal in size and configuration. CONCLUSION: 1. Small right and tiny left pleural effusion. 2. Extensive bilateral calcified pleural plaques which can be seen with asbestosis exposure. Electronically signed by: Aron Rosas MD Board Certified Radiologist 09/01/2018 4:07 PM EST
[2018-09-02] MEDS: Sod Chloride 0.9% Inj 1,000 ML IV.CONT SCH (05:08)
--- NOTE | 2018-09-02 09:05 | ECHRPT ---
Indication: SYNCOPE CONCLUSIONS Normal left ventricular size. Wall thickness is normal. The left ventricular systolic function is normal with an estimated ejection fraction in the range of 60-65%. No definite regional wall motion abnormalities are present. Moderate mitral valve regurgitation. Structurally normal mitral valve. Mild aortic valve sclerosis is present. Mild aortic valve regurgitation. There is mild tricuspid regurgitation. The estimated pulmonary arterial pressure is 45 mmHg. BP: / HR: Rhythm: Sinus MEASUREMENTS (Male / Female) Normal Values Technical Quality:Fair 2D ECHO LVOT Diameter 1.8 cm Aortic Root Diameter 3.5 cm LA Volume Index 50.3 cm/m 16 - 28 cm/m DOPPLER AV Peak Velocity 92.2 cm/s AV Peak Gradient 3.4 mmHg AV Mean Gradient 2.0 mmHg AV Velocity Time Integral 19.3 cm LVOT Peak Velocity 72.2 cm/s LVOT Peak Gradient 2.1 mmHg LVOT Velocity Time Integral 14.0 cm AV Area Cont Eq vti 1.8 cm AV Area Cont Eq pk 2.0 cm MR Peak Velocity 620.0 cm/s MR Peak Gradient 153.8 mmHg MR ERO PISA 0.2 cm MR Regurgitant Volume PISA 50.5 cm LV E' Lateral Velocity 11.2 cm/s LV E' Septal Velocity 8.6 cm/s TR Peak Velocity 404.0 cm/s TR Peak Gradient 65.0 mmHg Right Atrial Pressure 10.0 mmHg Pulmonary Artery Systolic Pressu 75.3 mmHg Right Ventricular Systolic Press 75.3 mmHg PV Peak Velocity 45.1 cm/s PV Peak Gradient 0.8 mmHg FINDINGS LEFT VENTRICLE Normal left ventricular size. Wall thickness is normal. The left ventricular systolic function is normal with an estimated ejection fraction in the range of 60-65%. No definite regional wall motion abnormalities are present. RIGHT VENTRICLE Normal right ventricular size and systolic function. LEFT ATRIUM The left atrial size is upper normal. RIGHT ATRIUM The right atrial size is normal. ATRIAL SEPTUM No atrial level shunt is demonstrated by color flow Doppler interrogation. AORTA The aortic root and proximal ascending aorta are normal in size on limited imaging. MITRAL VALVE Moderate mitral valve regurgitation. Structurally normal mitral valve. AORTIC VALVE Mild aortic valve sclerosis is present. Mild aortic valve regurgitation. TRICUSPID VALVE There is mild tricuspid regurgitation. The estimated pulmonary arterial pressure is 45 mmHg. PULMONARY VALVE Trivial pulmonary valve regurgitation. VESSELS The inferior vena cava is normal in size. PERICARDIUM No pericardial effusion. Bartolo Potts MD (Electronically Signed) Final Date:02 September 2018 09:04
--- NOTE | 2018-09-02 09:09 | P.PNIM ---
Subjective Interval history: Follow-up for syncope Blood pressure in the 140s-170s. Patient still has lightheadedness. No nausea or vomiting. Blood pressure stable, orthostatics negative. No events on telemetry. Physical Exam Vital signs: Vital Signs 09/01/18 12:00 09/01/18 16:00 09/01/18 20:00 Temperature 97.8 F 98.0 F 97.7 F Pulse Rate 88 86 85 Respiratory Rate 20 18 17 Blood Pressure 141/75 H 169/84 H 149/81 H Pulse Oximetry 98 99 98 Intake & Output 09/01/18 09/02/18 09/02/18 18:59 06:59 18:59 Intake Total 1000 / 1000 2280 / 2280 Output Total 1700 / 1700 300 / 300 Balance -700 / -700 1979 Intake: IV 1000 / 1000 1999 / 1999 NS Inj 1,000 ML @ 100 mls/hr IV 1000 / 1000 1999 .CONT .Q10H SULEMA Rx#:[id number] Oral 280 / 280 Output: Urine 1700 / 1700 300 / 300 Other: Date of Last Bowel Movement 08/30/18 Narrative: Not in distress, well-nourished, looks stated age PERRL, pink conjunctiva without injection, anicteric Normal rate and regular rhythm, no murmurs gallops or rubs appreciated. Clear to auscultation and symmetric bilaterally, normal respiratory effort. Normal bowel sounds, soft, non-tender, nondistended, no guarding. Extremities without clubbing, cyanosis, or edema. No rash of generalized distribution. AAO x3, no cranial nerve deficits, moves all 4 extremities, no focal neurologic deficits Results Labs CBC & Chem 7: 09/01/18 10:26 09/02/18 10:21 Imaging Imaging: Impressions Chest CT 09/01/18 00:00 CONCLUSION: 1. Small right and tiny left pleural effusion. 2. Extensive bilateral calcified pleural plaques which can be seen with asbestosis exposure. Assessment and Plan (1) Syncope: Code(s): R55 - Syncope and collapse Status: Acute (2) Hyponatremia: Code(s): E87.1 - Hypo-osmolality and hyponatremia Status: Acute (3) Weakness: Code(s): R53.1 - Weakness Status: Acute Plan This is an 88-year-old male with history of hypertension, colon cancer, atrial fibrillation presented to the hospital for possible seizure versus syncope. Seizure versus syncope - reports ongoing lightheadedness for few weeks w/ previous syncopal events, pt w/ no recollection of events. CT Head w/ chronic small vessel ischemic changes. CTA Head chronic atherosclerotic disease , neck CTA showed scattered areas of plaque carotid bulbs bilaterally without significant stenosis, mild soft plaque left common carotid artery without significant stenosis. Keep on telemetry. Echocardiogram showed an ejection fraction of 60-65%, no wall motion abnormalities, no aortic stenosis. Mild aortic valve regurgitation. Troponin negative x3. EEG showed mild encephalopathy. Orthostatics negative. Telemetry unremarkable. Urinalysis negative. Discussed with daughter, most likely cause would be hyponatremia at this point. Bilateral calcified diaphragmatic pleural plaques-chest x-ray showed bilateral calcified diaphragmatic pleural plaques. There are also areas of density projecting over the mid chest regions bilaterally presumably from pleural calcifications. Chest CT only showed small right and tiny left pleural effusion , extensive bilateral calcified pleural plaques which can be seen with asbestosis exposure, this can be followed up as outpatient. Hyponatremia-sodium now normal, stop IVF, start sodium chloride tablets, recheck BMP tomorrow. Generalized weakness-could be from dehydration, resolved. Hypertension-uncontrolled, on lisinopril, metoprolol DVT prophylaxis: SCDs Patient will need rehab per physical therapy evaluation. Discussed with daughter and patient, patient has a DNR/DNI order Recommendation is rehab, will reevaluate now that the sodium is normal. Discharge with home health care preferable versus rehab. Needs outpatient follow-up with primary care physician. I spent 35 minutes [id number] with the patient or on the quintana discussing the patient's disposition, prognosis and plan of care with his daughter. Over half of time spent was devoted to counseling the patient regarding placement and coordinating care with caregivers and nursing. Progress Note: Quality VTE Deep Vein Thrombosis/Pulmonary Embolism Present on Admission: No
[2018-09-02] MEDS ORDERED: Lisinopril 20 MG Tablet PO SCH (09:15)
[2018-09-02] MEDS: Senna/Docusate Sodium 8.6/50 MG Tablet PO SCH ×2 (09:22→21:12)
[2018-09-02] MEDS: oxyCODONE/Acetaminophen 10/325 Tablet PO PRN ×2 (09:23→17:00)
[2018-09-02] MEDS: Pantoprazole Sodium 20 MG DR Tablet PO SCH (09:23)
[2018-09-02] MEDS: Lisinopril 20 MG Tablet PO SCH ×2 (09:23→21:07)
--- NOTE | 2018-09-02 09:35 | MG ---
cc: Ramy Mcgrath MD EEG RECORD NUMBER: [id number] Posterior rhythm demonstrates 6 Hz activity 10-40 microvolts with overriding occasional 2-3 Hz delta activity. Moderate frontal myogenic artifact. Reduced driving with photic stimulation. Single lead EKG showing sinus rhythm. INTERPRETATION: Mild encephalopathy. Clinical correlation. MD SILAS Garcia/susie , 08:07 AM , 08:11 AM
[2018-09-02 12:20] LABS: Calcium 8.8 mg/dL (8.5-10.1); Carbon Dioxide 27.1 meq/L (21.0-32.0); Potassium 4.3 meq/L (3.5-5.1)
[2018-09-02] MEDS: Sodium Chloride 1 GM Tablet PO SCH ×2 (14:38→21:07)
[2018-09-02] MEDS: Metoprolol Tartrate 25 MG Tablet PO SCH (21:06)
[2018-09-03] MEDS: Sodium Chloride 1 GM Tablet PO SCH (09:29)
[2018-09-03] MEDS: Lisinopril 20 MG Tablet PO SCH (09:29)
[2018-09-03] MEDS: Pantoprazole Sodium 20 MG DR Tablet PO SCH (09:29)
[2018-09-03] MEDS: Senna/Docusate Sodium 8.6/50 MG Tablet PO SCH (09:29)
[2018-09-03] MEDS: Metoprolol Tartrate 25 MG Tablet PO SCH (09:30)
--- NOTE | 2018-09-03 10:55 | P.PNIM ---
Subjective Interval history: No new complaints today, still a bit lightheaded. Sodium is 135. She would like to go home instead of going to rehab. Physical Exam Vital signs: Vital Signs 09/02/18 12:15 09/02/18 16:00 09/02/18 17:05 Temperature 96.3 F L 96.9 F L Pulse Rate 87 86 62 Respiratory Rate 20 20 Blood Pressure 133/92 H 135/71 Pulse Oximetry 98 09/03/18 08:10 Temperature 97.4 F L Pulse Rate 83 Respiratory Rate 17 Blood Pressure 161/86 H Pulse Oximetry 97 Intake & Output 09/02/18 09/03/18 09/03/18 18:59 06:59 18:59 Intake Total 1000 / 1000 Output Total 150 / 150 125 / 125 Balance 850 / 850 -125 / -125 Intake: IV 1000 / 1000 NS Inj 1,000 ML @ 100 mls/hr IV 1000 / 1000 .CONT .Q10H SULEMA Rx#:[id number] Output: Urine 150 / 150 125 / 125 Other: Date of Last Bowel Movement 08/30/18 08/31/18 Narrative: Not in distress, well-nourished, looks stated age PERRL, pink conjunctiva without injection, anicteric Normal rate and regular rhythm, no murmurs gallops or rubs appreciated. Clear to auscultation and symmetric bilaterally, normal respiratory effort. Normal bowel sounds, soft, non-tender, nondistended, no guarding. Extremities without clubbing, cyanosis, or edema. No rash of generalized distribution. AAO x3, no cranial nerve deficits, moves all 4 extremities, no focal neurologic deficits Results Labs CBC & Chem 7: 09/01/18 10:26 09/03/18 10:50 Assessment and Plan (1) Syncope: Code(s): R55 - Syncope and collapse Status: Acute (2) Hyponatremia: Code(s): E87.1 - Hypo-osmolality and hyponatremia Status: Acute (3) Weakness: Code(s): R53.1 - Weakness Status: Acute Plan This is an 88-year-old male with history of hypertension, colon cancer, atrial fibrillation presented to the hospital for possible seizure versus syncope. Seizure versus syncope - reports ongoing lightheadedness for few weeks w/ previous syncopal events, pt w/ no recollection of events. CT Head w/ chronic small vessel ischemic changes. CTA Head chronic atherosclerotic disease , neck CTA showed scattered areas of plaque carotid bulbs bilaterally without significant stenosis, mild soft plaque left common carotid artery without significant stenosis. Keep on telemetry. Echocardiogram showed an ejection fraction of 60-65%, no wall motion abnormalities, no aortic stenosis. EEG no seizures, just mild encephalopathy. Mild aortic valve regurgitation. Troponin negative x3. EEG showed mild encephalopathy. Orthostatics negative. Telemetry unremarkable. Urinalysis negative. Discussed with daughter, most likely cause would be hyponatremia at this point. Repeat sodium off IVF is 135. Bilateral calcified diaphragmatic pleural plaques-chest x-ray showed bilateral calcified diaphragmatic pleural plaques. There are also areas of density projecting over the mid chest regions bilaterally presumably from pleural calcifications. Chest CT only showed small right and tiny left pleural effusion , extensive bilateral calcified pleural plaques which can be seen with asbestosis exposure, this can be followed up as outpatient. Hyponatremia-off IVF, on sodium chloride tablets, repeat sodium 135. Generalized weakness-could be from dehydration, resolved. Hypertension-uncontrolled, on lisinopril, metoprolol DVT prophylaxis: SCDs Discussed with daughter and patient, patient has a DNR/DNI order Recommendation is rehab, will reevaluate now that the sodium is normal. Discharge with home health care preferable versus rehab. Needs outpatient follow-up with primary care physician. . Progress Note: Quality VTE Deep Vein Thrombosis/Pulmonary Embolism Present on Admission: No
[2018-09-03 11:46] LABS: Anion Gap 6 meq/L (5-15); Blood Urea Nitrogen 10 mg/dL (7-18); Calcium 8.9 mg/dL (8.5-10.1); Carbon Dioxide 26.8 meq/L (21.0-32.0); Chloride 102 meq/L (98-107); Glomerular Filtration Rate Greater Than 89 mL/min (>89); Glucose,Random 119 mg/dL (74-106); Sodium 135 meq/L (136-145)
[2018-09-03 11:47] LABS: Potassium 4.9 meq/L (3.5-5.1)
[2018-09-03 13:05] VITALS: O2SAT 99
--- NOTE | 2018-09-03 14:47 | P.DS ---
DS: Providers Date of admission: 09/01/18 10:15 Primary care physician: No Primary Care Physician Brief History from admission: This is an 88-year-old male with a PMH of HTN, Colon CA s/p Resection, h/o Right CEA and h/o A-fib who was brought to the ER after episode of syncope vs seizure. Pt very poor historian, but reports significant lightheadedness for several weeks, states he was told he had a syncopal event, but has no recollection. Per Daughter, pt was seen at Rehab Facility slumped in chair w/ "eyes rolled back", +LOC for approx 5 min. No recurrent episodes while in ER. DS: Diagnosis Discharge Diagnosis (1) Syncope: Status: Acute (2) Hyponatremia: Status: Acute (3) Weakness: Status: Acute DS: Summary This is an 88-year-old male with history of hypertension, colon cancer, atrial fibrillation presented to the hospital for possible seizure versus syncope. Patient reports ongoing lightheadedness for few weeks w/ previous syncopal events, pt w/ no recollection of events. CT Head w/ chronic small vessel ischemic changes. CTA Head chronic atherosclerotic disease , neck CTA showed scattered areas of plaque carotid bulbs bilaterally without significant stenosis , mild soft plaque left common carotid artery without significant stenosis. Keep on telemetry. Echocardiogram showed an ejection fraction of 60-65%, no wall motion abnormalities, no aortic stenosis. EEG no seizures, just mild encephalopathy. Mild aortic valve regurgitation. Troponin negative x3. EEG showed mild encephalopathy. Orthostatics negative. Telemetry unremarkable. Urinalysis negative. Discussed with daughter, most likely cause would be hyponatremia at this point. Sodium on presentation was 128, improved with normal saline. Patient switch to sodium chloride tablets. Repeat sodium on sodium chloride tablets is 135. Patient will be discharged home with home health care versus [facility] facility based on physical therapy evaluation. Of note, patient was found to have bilateral calcified diaphragmatic pleural plaques on chest x-ray. There are also areas of density projecting over the mid chest regions bilaterally presumably from pleural calcifications. Chest CT only showed small right and tiny left pleural effusion, extensive bilateral calcified pleural plaques which can be seen with asbestosis exposure, this can be followed up as outpatient. Time Spent with Patient Total time spent providing and/or coordinating discharge services: Greater than 30 minutes Quality: VTE Deep Vein Thrombosis/Pulmonary Embolism Present on Admission: No Results Labs on day of discharge: Labs from last 24 hours 09/03/18 10:50 Sodium 135 L Potassium 4.9 Chloride 102 Carbon Dioxide 26.8 Anion Gap 6 BUN 10 Creatinine 0.78 Estimated GFR Greater than 89 Random Glucose 119 H Calcium 8.9 Impressions ITS Impressions Chest X-Ray 08/31/18 17:35 CONCLUSION: Bilateral calcified pleural plaques seen at the diaphragmatic surfaces bilaterally. There are also areas of density projecting over the mid chest regions bilaterally presumably from pleural calcifications. Prior exams are unavailable for comparison. One could further evaluate the chest to ensure the areas of density over the mid chest are related to pleural calcifications with a CT examination. Head CT 08/31/18 17:35 CONCLUSION: Chronic small vessel ischemic and atrophic changes. Neck CTA 08/31/18 17:35 CONCLUSION: 1. Scattered areas of plaque at the carotid bulb regions bilaterally without evidence of significant stenosis. 2. Mild soft plaque at the proximal left common carotid artery without a significant stenosis. Chest CT 09/01/18 00:00 CONCLUSION: 1. Small right and tiny left pleural effusion. 2. Extensive bilateral calcified pleural plaques which can be seen with asbestosis exposure. Discharge Plan Discharge Disposition Patient Disposition: W/Home Health Service Discharge Condition Condition: Stable Discharge Order Discharge Orders: Discharge Order (Routine); Ordered 09/03/18 Ordered By: Alberto Doty Discharge Details Anticipated Discharge Date: 09/03/18 Discharge Comment: d/c if Na is normal Physicians Team Primary Care Provider: Primary Nay Hernández Attending Provider: Alberto Doty Rxs /Orders / Referrals /Forms Prescriptions: New pravastatin 40 mg Tablet 40 mg PO DAILY Qty: 30 RF: 0 sodium chloride 1 gram Tablet 1 gm PO BID Qty: 60 RF: 0 aspirin 81 mg Tablet,Delayed Release (Dr/Ec) 81 mg PO DAILY Qty: 60 RF: 0 Continue lisinopril 20 mg Tablet 20 mg PO BID RF: 0 levothyroxine [Synthroid] 25 mcg Tablet 25 mcg PO DAILY RF: 0 meclizine 25 mg Tablet,Chewable 25 mg PO BID RF: 0 metoprolol tartrate 25 mg Tablet 25 mg PO BID RF: 0 omeprazole 20 mg Tablet,Delayed Release (Dr/Ec) 20 mg PO DAILY RF: 0 Referrals: Primary Care Nay Lainez [Primary Care Provider] - See Instructions Status ED Status: Left Department
--- NOTE | 2018-09-03 15:26 | P.DCO ---
Diagnosis (1) Syncope: Status: Acute (2) Weakness: Status: Acute Occupational Therapy Order: Evaluate and treat Case Management Consult Case Management Consult-Home Health: Yes I have seen patient Ritchie Orta on 09/03/18. My clinical findings support the need for the requested home health care services because: Limited mobility due to disease progression, Limited ability to care for self and High risk of falls I certify that my clinical findings support that this patient is homebound because: Impaired cognitive ability/safety and Unsteady gait/balance
[2018-09-03 17:27] VITALS: BP 145/76; PULSE 84; RESP 17; TEMP 97
== END 2018-09-03 19:20 | disposition home health service (06) | DRG 641 ==
LOC: NEDA 14:58 → NEPD 14:58 → OBSVTOIN 22:54 → H7ONC 09-01 00:55
PROVIDERS: ADMIT Hospitalist; ATTEND Hospitalist
DX: R29.6 Repeated falls; Z85.038 Personal history of other malignant neoplasm of large intestine; I10 Essential (primary) hypertension; Z90.49 Acquired absence of other specified parts of digestive tract; I48.91 Unspecified atrial fibrillation; E87.1 Hypo-osmolality and hyponatremia; Z66 Do not resuscitate; J92.9 Pleural plaque without asbestos
CPT/HCPCS: 70450; 70496; 70498; 71010; 71045; 71250; 80048; 80053; 81001; 83735; 84100; 84132; 84443; 84484; 85025; 85610; 90760; 90761; 93005; 93306; 95819; 96360; 96361; 97116; 97162; 99285; J7030; Q9967